=== PATIENT | male | born 1955 | race Caucasian/White ===

== ENCOUNTER 2017-11-30 06:00 | Inpatient (IN) ==
[2017-11-30] MEDS ORDERED: Heparin 10,000 UNITS/10 ML Vial (for IV use) ONE (06:43)
[2017-11-30] MEDS ORDERED: Protamine Sulfate Inj 50 MG/5 ML Vial ONE (06:43)
[2017-11-30] MEDS ORDERED: Heparin/NS PF Inj 500 ML ONE (06:44)
[2017-11-30] MEDS ORDERED: Thrombin Topical 20,000 UNIT Spray Kit TOPICAL ONE (06:44)
[2017-11-30] MEDS ORDERED: Bupivacaine 0.5% Inj 50 ML MDV Vial ONE (06:44)
[2017-11-30] MEDS ORDERED: Metoprolol Tartrate 25 MG Tablet PO ONE (07:01)
[2017-11-30] MEDS ORDERED: Chlorhexidine Gluconate 2% 1 Pack (2 Cloths) TOPICAL ONE (07:01)
--- NOTE | 2017-11-30 07:02 | P.PNVS ---
- Pre-operative Note Planned Procedure: R groin reconstruction, angiogram and endovascular intervention Interval History: Pt has been feeling well, no problems. Ready for procedure. Labs: Hct 40 [id number] cr 0.7 INR pending Blood: T&S EKG: no acute changes Imaging: will make in OR Orders: NPO Ancef 2g IV OCTOR Post-operative Destination: PACU Operative site marked: Yes Consent: Informed consent has been obtained from Teddy Carbone. I have explained the procedure in detail and discussed the risks, benefits, and potential complications. All questions have been answered. Patient Contact Information: , [place] [phone]
[2017-11-30] MEDS ORDERED: Lidocaine PF 1% Inj 5 ML Syringe OTHER ONE (07:45)
[2017-11-30] MEDS ORDERED: Normosol-R pH 7.4 Inj 1,000 ML IV.CONT ONE (07:45)
[2017-11-30] MEDS ORDERED: Glycopyrrolate Inj 1 MG/5 ML Syringe IV.PUSH ONE (07:45)
[2017-11-30] MEDS ORDERED: Neostigmine Inj 5 MG/5 ML Syringe IV.PUSH ONE (07:45)
[2017-11-30] MEDS ORDERED: Sodium Chlor 0.9% Inj 500 ML IV.CONT ONE (07:45)
[2017-11-30] MEDS ORDERED: Sodium Chlor 0.9% Inj 500 ML IV.SIG SCH (08:00)
[2017-11-30] MEDS: ceFAZolin 2 GM Premix Inj 2 GM/50 ML PIGGYBACK IV.SIG ONE ×2 (08:25→08:35)
[2017-11-30] MEDS ORDERED: Morphine Inj 4 MG/ML Vial IV.PUSH PRN (11:42)
[2017-11-30] MEDS ORDERED: Bisacodyl 10 MG Supp RECTAL PRN (11:42)
--- NOTE | 2017-11-30 11:42 | P.OP ---
- Preoperative Diagnosis (1) Claudication of right lower extremity - Postoperative Diagnosis (1) Claudication of right lower extremity Date of procedure: 11/30/17 Procedure: 1. R ilioprofunda bypass (8mm Dacron) 2. R MENAGERIE CARETAKER-SFA bypass (8mm Dacron) 3. R LE angiogram 4. R SFA orbital atherectomy/stent (6x120 Zilver PTX) 5. L MENAGERIE CARETAKER Angioseal Implants: 1. Dacron R groin 2. R SFA stent 3. L MENAGERIE CARETAKER Angioseal Anesthesia: GETA Surgeon: Rosas Collazo MD Floor Framer: Mata John Floor Framer: TERESSA Montesinos Estimated blood loss (mL): 200 IV fluids (mL): 2,200 Urine output (mL): 400 Pathology: none sent Operation and Findings: severe calcific occlusive disease good pedal signals after revascularization
[2017-11-30] MEDS ORDERED: Dextrose 50% in Water 50 ML Vial IV.PUSH PRN (11:46)
[2017-11-30] MEDS ORDERED: Morphine Inj 4 MG/ML Vial ONE (12:35)
[2017-11-30] MEDS ORDERED: fentaNYL Citrate Inj 100 MCG/2 ML Ampul ONE (12:35)
--- NOTE | 2017-11-30 13:39 | MP ---
cc: Rosas Collazo MD DATE OF OPERATION: 11/30/2017 PREOPERATIVE DIAGNOSES: Right lower extremity claudication, peripheral vascular disease. POSTOPERATIVE DIAGNOSES: Right lower extremity claudication, peripheral vascular disease. PROCEDURE PERFORMED: 1. Aortogram with right lower extremity angiogram. 2. Right ilioprofunda bypass with 8 mm Dacron. 3. Right common femoral artery to superficial femoral artery bypass with 8 mm Dacron. 4. Right superficial femoral artery orbital atherectomy, angioplasty and stent with a 6 x 120 drug-coated stent. 5. Left common femoral artery Angio-Seal. ATTENDING SURGEON: Rosas Collazo MD WAREHOUSE OPERATIONS MANAGER SURGEONS: Mata John MD; TERESSA Negron, PA/Risk Control Consultant ANESTHESIA: General. INDICATIONS: Mr. Carbone is a 62-year-old gentleman with right lower extremity claudication and ABIs in the 0.5 range. He was taken to the operating room for hybrid therapy. There is no prior catheter-based imaging available for my review of the right leg in its entirety. DESCRIPTION OF PROCEDURE: Informed consent was obtained from the patient. He was taken to the operating room and placed supine on the operating room table. An appropriate timeout was taken to ensure the patient's identity, operative site and planned procedure. The administration of 2 grams of Ancef was initiated prior to skin incision and will be discontinued after a single preoperative dose. Everyone in the room agreed with the timeout and we proceeded. He was prepped from his nipples to his toes. A 21 gauge micropuncture needle was used to access the left common femoral artery. This was exchanged using the Seldinger technique for a micropuncture sheath, through which a 0.035 Glidewire was introduced and the micropuncture sheath was exchanged for a 5 Singaporean sheath. A VCF catheter was positioned over the wire and through the sheath, an aortogram and pelvic arteriogram obtained. The aortogram showed the patient had patent infrarenal aorta, common iliac arteries, external iliac arteries and hypogastrics bilaterally without any hemodynamically significant stenosis. The wire and catheter were navigated down to the right external iliac artery and a right lower extremity angiogram was obtained. This showed the patient had an occluded common femoral artery with reconstitution of the profunda. The proximal SFA was also occluded. The distal SFA had severe high-grade stenoses and there was 3-vessel runoff below the knee. The wire and catheter were removed. The sheath was flushed. A vertical incision was made in the patient's right groin and carried down to the subcutaneous tissue. The inguinal ligament was divided. The iliac arteries, circumflex arteries, common femoral, profunda and SFA were all dissected free. The patient was systemically heparinized and throughout the remainder of the case, the ACT was kept greater than 250. Proximal control of the external iliac arteries were obtained with profunda clamps and large Hemoclips were temporarily placed on the circumflex vessels. The SFA and both branches of the profunda were controlled with profunda clamps. The entire artery was resected and the iliac artery was endarterectomized and spatulated. An 8 mm Dacron was brought up on the field and sewn end to end to the external iliac artery with running 5-0 Prolene suture. At completion, it was flushed and noted to be hemostatic. The clamps were released and the Anderson softjaw was placed on the Dacron. The Dacron was cut to appropriate length, spatulated and sewn to the profunda at the bifurcation after the profunda had been spatulated. This was done with running 6-0 Prolene suture. At completion, it was flushed and noted to be hemostatic. The clamps were released and there were Doppler signals in both profunda branches. Clamps were then placed on the Dacron and a longitudinal graftotomy was made with an 11 blade and extended with Jose scissors. The Dacron was then spatulated and sewn end to side with running 5-0 Prolene suture. The distal SFA was endarterectomized and spatulated and the Dacron was cut to appropriate length and spatulated and sewn end to end to the SFA with running 5-0 Prolene suture. At the completion, it was flushed and noted to be hemostatic. All the anastomoses were hemostatic. We then turned our attention towards the endovascular part of the procedure. A Glidewire and VCF catheter were advanced up to the right common femoral artery and advanced down through our graft into the mid SFA. A Cortes was placed in exchange for the [place]. The VCF catheter and 5 Singaporean sheath were removed and a 6 Singaporean 55 cm antral sheath was introduced. A CXI catheter was placed over the Cortes and the Cortes was exchanged for a BRINE PROCESS OPERATOR wire. Using the BRINE PROCESS OPERATOR and CXI, we were unable to traverse the distal SFA calcific stenosis, but were able to reach this in the subintimal plane and then reenter the true lumen and this confirmed angiographically. Once the BRINE PROCESS OPERATOR was past the occlusion and into the distal SFA, a Viper wire was then placed and the CXI catheter was removed. The distal SFA was atherectomized using an orbital atherectomy system. It was post atherectomy angioplastied with a 5 mm balloon. The completion angiogram showed residual stenosis and this was treated with a 6 x 120 drug-coated stent. The completion angiogram showed excellent result without any recoil extravasation and no embolic complications. The wire, catheter and sheath were removed and the groin was closed with an Angio-Seal. There were Doppler signals in the right foot. The heparin was reversed with protamine. The wound was irrigated, infiltrated with Marcaine, made hemostatic and closed with 2-0 Polysorb in 2 layers, 3-0 Polysorb and 4-0 Monocryl. The sponge and needle counts were correct at the end of the case. I was present, scrubbed and performed the entire procedure. MD JAVI Hernandez/chris , 12:45 PM , 12:58 PM
[2017-11-30] MEDS: Insulin NovoLOG Aspart Correctional Sugar Inj SQ SCH ×2 (17:29→23:17)
[2017-12-01] MEDS: Senna/Docusate Sodium 8.6/50 MG Tablet PO SCH ×3 (00:19→20:53)
[2017-12-01 05:45] LABS: Hematocrit 38.7 % (39.0-51.0); Hemoglobin 13.1 gm/dL (13.0-17.0); Mean Corpuscular HGB Conc 33.8 % (32.0-36.0); Mean Corpuscular Hemoglobin 32.3 pg (27.0-34.0); Mean Corpuscular Volume 95.3 fL (80.0-100.0); Mean Platelet Volume 7.7 fL (7.0-11.0); Platelet Count 165 th/mm3 (150-450); Red Blood Count 4.06 mil/mm3 (4.50-5.90); Red Cell Distribution Width 13.1 % (11.6-17.2); White Blood Count 7.8 th/mm3 (4.0-11.0)
[2017-12-01 06:04] LABS: Anion Gap 9 meq/L (5-15); Blood Urea Nitrogen 8 mg/dL (7-18); Calcium 8.3 mg/dL (8.5-10.1); Carbon Dioxide 29.2 meq/L (21.0-32.0); Chloride 100 meq/L (98-107); Glomerular Filtration Rate Greater Than 89 mL/min (>89); Glucose,Random 224 mg/dL (74-106); Potassium 3.9 meq/L (3.5-5.1); Sodium 138 meq/L (136-145)
--- NOTE | 2017-12-01 09:17 | P.PNVS ---
Subjective Post Op Day #: 1 Procedure: R groin reconstruction and SFA intervention Subjective/Hospital Course: looks good pain controlled modestly foot feels warmer Objective Vital Signs / I&O: Vital Signs 11/30/17 12:17 11/30/17 12:30 11/30/17 12:45 Temperature 97.4 F L Pulse Rate 72 66 63 Respiratory Rate 15 14 12 Blood Pressure 159/81 H 154/78 H 155/79 H Pulse Oximetry 98 92 L 95 11/30/17 13:00 11/30/17 13:15 11/30/17 13:30 Temperature Pulse Rate 61 60 61 Respiratory Rate 12 13 14 Blood Pressure 151/77 H 148/76 H 148/80 H Pulse Oximetry 96 97 94 L 11/30/17 13:45 11/30/17 14:00 11/30/17 14:15 Temperature Pulse Rate 60 62 63 Respiratory Rate 14 13 12 Blood Pressure 147/74 H 147/77 H 150/77 H Pulse Oximetry 95 95 96 11/30/17 14:30 11/30/17 16:00 11/30/17 20:00 Temperature 97.5 F L 98.7 F 97.9 F Pulse Rate 66 63 78 Respiratory Rate 15 17 22 Blood Pressure 150/77 H 153/79 H Pulse Oximetry 95 97 100 12/01/17 00:00 12/01/17 00:40 12/01/17 04:00 Temperature 97.9 F 98.2 F Pulse Rate 74 77 Respiratory Rate 20 18 18 Blood Pressure 148/75 H 153/74 H Pulse Oximetry 100 100 12/01/17 08:00 Temperature Pulse Rate Respiratory Rate 18 Blood Pressure Pulse Oximetry Intake & Output 11/30/17 12/01/17 12/01/17 18:59 06:59 18:59 Intake Total 2490 / 2490 240 / 240 Output Total 1300 / 1300 900 / 900 Balance 1190 / 1190 -660 / -660 Weight 68.096 kg 69.5 kg Intake: IV 1050 / 1050 Heparin/NS PF Inj 500 ML @ 0 0 / 0 mls/hr .ROUTE .STK-MED ONE Rx#: [id number] LR 1000 mL Inj 1,000 ML @ 30 1000 / 1000 mls/hr IV.SIG .Q24H [facility] Rx#: [id number] Ancef 2 GM Premix Inj 2 gm In 50 / 50 50 ml @ 0 mls/hr IV.SIG .STK- MED ONE Rx#:[id number] Oral 240 / 240 240 / 240 Anesthesia Amount 1200 / 1200 Output: Estimated Blood Loss 200 / 200 Urine Amount (Catheter) 1100 / 1100 900 / 900 3-way Urethral 650 / 650 Indwelling Urethral Catheter 450 / 450 900 / 900 Other: Mode Setting Right Groin Continuous Continuous Date of Last Bowel Movement 11/29/17 11/29/17 Exam: R groin soft, Prevena intact palpable DP Laboratory Results - last 24 hr 11/30/17 11/30/17 11/30/17 13:02 17:24 23:33 WBC RBC Hgb Hct MCV MCH MCHC RDW Plt Count MPV Sodium Potassium Chloride Carbon Dioxide Anion Gap BUN Creatinine Estimated GFR POC Glucose 204 H 187 H 259 H Random Glucose Calcium 12/01/17 12/01/17 12/01/17 04:13 04:13 05:01 WBC 7.8 RBC 4.06 L Hgb 13.1 Hct 38.7 L MCV 95.3 MCH 32.3 MCHC 33.8 RDW 13.1 Plt Count 165 MPV 7.7 Sodium 138 Potassium 3.9 Chloride 100 Carbon Dioxide 29.2 Anion Gap 9 BUN 8 Creatinine 0.68 Estimated GFR Greater than 89 POC Glucose 228 H Random Glucose 224 H Calcium 8.3 L Assessment and Plan - Assessment (1) Claudication of right lower extremity Code(s): I73.9 - Peripheral vascular disease, unspecified Status: Acute - Plan POD#1 s/p R groin reconstruction; looks good 1. IV pain meds for pain control 2. Maciel out - watch for UOP (difficult placement intraop) 3. Resume anticoagulation tomorrow (POD#2) 4. Continue ASA/plavix 5. OOB/PT Discharge Planning: likely 2 days
[2017-12-01] MEDS: glipiZIDE 5 MG Tablet PO SCH (09:20)
[2017-12-01] MEDS: dilTIAZem CD 180 MG Capsule PO SCH (09:21)
[2017-12-01] MEDS: Insulin NovoLOG Aspart Correctional Sugar Inj SQ SCH ×5 (09:22→20:53)
[2017-12-01] MEDS ORDERED: Enoxaparin Inj 40 MG/0.4 ML Syringe SQ SCH (11:00)
[2017-12-02] MEDS: Insulin NovoLOG Aspart Correctional Sugar Inj SQ SCH ×5 (04:42→20:48)
[2017-12-02] MEDS: glipiZIDE 5 MG Tablet PO SCH (09:10)
[2017-12-02] MEDS: Senna/Docusate Sodium 8.6/50 MG Tablet PO SCH ×2 (09:11→20:48)
[2017-12-02] MEDS: dilTIAZem CD 180 MG Capsule PO SCH (09:11)
--- NOTE | 2017-12-02 09:22 | P.PNVS ---
Subjective Post Op Day #: 2 Procedure: R groin reconstruction and SFA intervention Subjective/Hospital Course: more mobile today foot continues to be warm, perfused Objective Vital Signs / I&O: Vital Signs 12/01/17 12:00 12/01/17 14:26 12/01/17 16:00 Temperature 98 F 98 F Pulse Rate 76 92 H Respiratory Rate 20 Blood Pressure 150/68 H Pulse Oximetry 100 12/01/17 19:00 12/01/17 20:00 12/01/17 21:00 Temperature 98.8 F Pulse Rate 97 H 90 92 H Respiratory Rate 14 Blood Pressure 136/71 Pulse Oximetry 93 L 12/01/17 22:00 12/01/17 23:00 12/02/17 00:00 Temperature 99.9 F H Pulse Rate 90 90 92 H Respiratory Rate 14 Blood Pressure 139/71 Pulse Oximetry 92 L 12/02/17 00:03 12/02/17 01:57 12/02/17 02:00 Temperature Pulse Rate 91 H 82 83 Respiratory Rate Blood Pressure Pulse Oximetry 12/02/17 03:00 12/02/17 04:00 12/02/17 05:00 Temperature 99.1 F Pulse Rate 81 80 96 H Respiratory Rate 14 Blood Pressure 135/65 Pulse Oximetry 93 L 12/02/17 06:00 Temperature Pulse Rate 79 Respiratory Rate Blood Pressure Pulse Oximetry Intake & Output 12/01/17 12/02/17 12/02/17 18:59 06:59 18:59 Intake Total 1440 / 1440 240 / 240 Output Total 1100 / 1100 200 / 200 Balance 340 / 340 40 / 40 Weight 68.5 kg Intake: Oral 240 / 240 240 / 240 Anesthesia Amount 1200 / 1200 Output: Urine 200 / 200 Estimated Blood Loss 200 / 200 Urine Amount (Catheter) 900 / 900 Indwelling Urethral Catheter 900 / 900 Other: Post Void Residual 600 Mode Setting Right Groin Continuous Continuous # Voids 1 1 Date of Last Bowel Movement 11/29/17 11/29/17 # Bowel Movements 1 Exam: R Prevena in place, no groin swelling palpable DP Laboratory Results - last 24 hr 12/01/17 12/01/17 12/02/17 17:45 20:11 04:16 POC Glucose 184 H 236 H 170 H 12/02/17 08:00 POC Glucose 180 H Assessment and Plan - Assessment (1) Claudication of right lower extremity Code(s): I73.9 - Peripheral vascular disease, unspecified Status: Acute - Plan POD#2 s/p R groin reconstruction; looks good 1. resume anticoagulation (home) 2. OOB/PT 3. D/C tomorrow Discharge Planning: home
[2017-12-02] MEDS: Enoxaparin Inj 60 MG/0.6 ML Syringe SQ SCH ×2 (09:56→20:48)
[2017-12-02 12:35] LABS: INR 1.1 Ratio; Prothrombin Time 11.1 sec (9.8-11.6)
[2017-12-03] MEDS: Insulin NovoLOG Aspart Correctional Sugar Inj SQ SCH ×2 (02:03→09:01)
[2017-12-03 07:04] VITALS: RESP 18
--- NOTE | 2017-12-03 07:40 | P.PNVS ---
Subjective Post Op Day #: 3 Procedure: R groin reconstruction and SFA intervention Subjective/Hospital Course: looks great pain controlled OOB TC and ambulating ame po voiding Objective Vital Signs / I&O: Vital Signs 12/02/17 08:00 12/02/17 09:00 12/02/17 10:00 Temperature 98.2 F Pulse Rate 82 87 77 Respiratory Rate 18 Blood Pressure 144/72 H Pulse Oximetry 92 L 12/02/17 10:41 12/02/17 11:00 12/02/17 12:00 Temperature 99.1 F Pulse Rate 77 80 Respiratory Rate 18 18 Blood Pressure 148/72 H Pulse Oximetry 96 12/02/17 13:00 12/02/17 14:00 12/02/17 15:00 Temperature Pulse Rate 76 72 78 Respiratory Rate Blood Pressure Pulse Oximetry 12/02/17 16:00 12/02/17 17:00 12/02/17 18:00 Temperature 98.5 F Pulse Rate 77 87 77 Respiratory Rate 18 Blood Pressure 143/67 H Pulse Oximetry 96 12/02/17 18:27 12/02/17 19:00 12/02/17 20:00 Temperature 99.6 F Pulse Rate 75 80 Respiratory Rate 18 16 Blood Pressure 144/69 H Pulse Oximetry 93 L 12/02/17 21:00 12/02/17 22:00 12/02/17 23:00 Temperature Pulse Rate 82 80 75 Respiratory Rate Blood Pressure Pulse Oximetry 12/03/17 00:00 12/03/17 01:00 12/03/17 02:00 Temperature 99.5 F Pulse Rate 80 82 82 Respiratory Rate 16 Blood Pressure 148/68 H Pulse Oximetry 95 12/03/17 03:00 12/03/17 03:23 12/03/17 04:00 Temperature 98.5 F 98.5 F Pulse Rate 82 84 80 Respiratory Rate 16 16 Blood Pressure 151/74 H 151/74 H Pulse Oximetry 95 95 12/03/17 05:00 12/03/17 06:00 12/03/17 07:04 Temperature Pulse Rate 84 88 Respiratory Rate 18 Blood Pressure Pulse Oximetry Intake & Output 12/02/17 12/03/17 12/03/17 18:59 06:59 18:59 Intake Total 500 / 500 300 / 300 Balance 500 / 500 300 / 300 Weight 68.5 kg Intake: Oral 500 / 500 300 / 300 Other: Mode Setting Right Groin Continuous # Voids 3 2 Date of Last Bowel Movement 11/29/17 12/03/17 # Bowel Movements 1 Exam: R groin Prevena in place, groin soft palpable DP Laboratory Results - last 24 hr 12/02/17 12/02/17 12/02/17 08:00 11:23 11:57 PT 11.1 D INR 1.1 POC Glucose 180 H 181 H 12/02/17 12/02/17 12/03/17 15:48 19:34 02:02 PT INR POC Glucose 226 H 214 H 215 H Assessment and Plan - Assessment (1) Claudication of right lower extremity Code(s): I73.9 - Peripheral vascular disease, unspecified Status: Acute - Plan POD#3 s/p R groin reconstruction; looks good 1. d/c today 2. Going home on regular dose of coumadin, ASA (81) and 30 days of plavix 3. f/u Thursday for Prevena removal Discharge Planning: today
[2017-12-03] MEDS: Enoxaparin Inj 60 MG/0.6 ML Syringe SQ SCH (09:01)
[2017-12-03] MEDS: glipiZIDE 5 MG Tablet PO SCH (09:01)
[2017-12-03] MEDS: dilTIAZem CD 180 MG Capsule PO SCH (09:02)
[2017-12-03] MEDS: Senna/Docusate Sodium 8.6/50 MG Tablet PO SCH (09:04)
[2017-12-03 09:19] VITALS: PULSE 85
--- NOTE | 2017-12-03 09:21 | P.DS ---
Discharge Summary - Admission Date 11/30/17 06:00 - Admission Diagnosis (1) Claudication of right lower extremity - Discharge Date 12/03/17 - Discharge Diagnosis (1) Claudication of right lower extremity Status: Acute - Summary Brief History from admission: 62/M w a hx of R LE claudication Procedure: R groin reconstruction and SFA intervention Significant Findings: Palpable R DP LE warm w/ motor intact Pt denied claudication Prevena wound vac intact R groin s/nt w/o hematoma or swelling pain controlled Abnormal Lab Results 12/02/17 12/02/17 12/02/17 11:23 11:57 15:48 PT 11.1 D INR 1.1 POC Glucose 181 H 226 H 12/02/17 12/03/17 12/03/17 19:34 02:02 07:43 PT INR POC Glucose 214 H 215 H 167 H Hospital Course: 62/M with a PMH of arterial occlusive disease w/ worsening R LE claudication Pt s/p R groin reconstruction POD 1 looks good pain controlled modestly foot feels warmer POD 2 more mobile today foot continues to be warm, perfused POD 3 looks great pain controlled OOB TC and ambulating ame po voiding Pt clear for d/c w/ r groin wound vac Will remove in our out pt clinic on 12/07/17 Discussed out pt care and management - Discharge Instructions Any questions or concerns: Call [facility] at [facility] [phone] Discharge Plan - Discharge Disposition Patient Disposition: 01 Discharge Home - Discharge Condition Condition: Good - Discharge Order Discharge Orders: Discharge Order (Routine); Ordered 12/03/17 Ordered By: Sirisha Cristobal - Physicians Team Attending Provider: Rosas Collazo Rxs /Orders / Referrals /Forms Prescriptions: New clopidogrel [Plavix] 75 mg Tablet 75 mg PO DAILY 30 Days Qty: 30 RF: 0 oxycodone 5 mg Tablet 5 mg PO Q4H PRN (Reason: pain) Qty: 20 RF: 0 Continue aspirin 81 mg Tablet,Delayed Release (Dr/Ec) 81 mg PO DAILY diltiazem HCl [Cardizem LA] 360 mg Tablet Extended Release 24 Hr 360 mg PO DAILY glipizide 2.5 mg Tablet Extended Release 24hr 2.5 mg PO DAILY metformin 1,000 mg Tablet,Er Nixon.Retention 24 Hr 1,000 mg PO QPM rosuvastatin 20 mg Tablet 20 mg PO DAILY warfarin 6 mg Tablet 6 mg PO DAILY Ambulatory Orders / Order Sets / DME: Walker With Front Wheels (1 each) (Routine) Location: Determined by Patient Ordered By: Sirisha Cristobal Referrals: Kyle William MD [Other] - See Instructions Rosas Collazo MD [Physician] - See Instructions (Arrive Thursday in our out pt clinic on 12/07/17 at 1000 for your wound vac removal ) - Post Discharge Care Plan Care Plan Goals: Discharge Care Plan Goals After Vascular Surgery Contact: Please call [phone] if you have any problems or have questions regarding your hospitalization. Directions to Meet Your Goals: 1. Diet: * You may resume a regular diet as you were eating at home before your admission. 2. Activity: * Increase your activity level gradually. * Keep surgical extremities elevated when at rest. This will help limit the swelling, bruising and discomfort normally present after surgery. * Walking is a good form of light exercise. Go for a walk at least 3 times per day. * No heavy lifting (lifting over 10 pounds) for at least 4 weeks from surgery. * Check with your surgeon to ensure when you are cleared for heavy lifting and full-intensity exercising. * Your strength will gradually improve. * No driving or operating motorized vehicles while on prescription pain medications. * No swimming until wounds fully healed. * Return to work when cleared by MD/PA/SURFACER OPERATOR. 3. Bathing: Shower daily. * Gently let soap and water run over your incision and pat dry. Do not scrub the incision/wound. * Don't soak in a bath or submerge your incision in water until your incision is healed and evaluated by your physician at follow-up (usually two weeks). 4. Wound Care: INCISION SITE CARE INSTRUCTIONS: * You may leave your incision open to air. * Keep your incision clean and dry, unless showering. See above. * Moisture near the incision will cause the wound to open. * No lotions, creams, ointments, or powders on incisions until they are well- healed. * If you have glue over the incision(s), allow it to fall off naturally in 1-3 weeks * If present, aline/sutures will be removed 2-3 weeks after surgery during your follow-up clinic visit. * If present, change dressing/bandage when soaked/soiled as needed. * Observe wound daily, checking for signs and symptoms of infection including: foul odor, drainage from the incision, increased redness, increased pain at incision, or increased swelling. 5. Pain Control: Expect post-operative pain for 1-4 weeks after surgery. Your pain will improve gradually. * You may have been provided with a prescription for pain medication. Please take as directed, and be aware of side effects such as drowsiness, constipation and mild stomach discomfort. Pain pills on an empty stomach can cause nausea , so eat a small amount of food, such as crackers, when taking these pills. * Take [id number] stool softeners (Colace or Senna) with your prescribed pain medication. * Acetaminophen (500mg every 6 hours) or Ibuprofen (400mg every 6 hours) may be used in conjunction with narcotics to relieve pain. DO NOT take more than 4 grams (4000mg) of Tylenol in one day, as this can harm your liver. DO NOT take ibuprofen IF: you have an allergy to non-steroidal anti-inflammatory medications, you are taking Coumadin, you have been told you have kidney problems, or you have a history of gastrointestinal bleeding or ulcers. DO NOT take more than 3.2 grams (3200mg) of ibuprofen in one day. * You may also find relief from using heat packs or pads or ice packs. 6. Bowel Regimen for Constipation: * People who undergo surgery are likely to develop post-operative constipation. Exposure to narcotics and changes in diet, fluid intake, and physical activity are known contributors to constipation. We recommend routine stool softeners and/ or laxatives after surgery for most patients. Start by taking one medication. You can increase as directed to relieve constipation. Stop taking these medications if you develop diarrhea. These medications are available over-the- counter and do not require a prescription: * Colace is a stool softener. We recommend starting at 100mg orally twice per day as needed for soft stools and increase to a maximum of 200mg twice daily as needed. * Senna is a laxative that works by keeping water in the intestine to help stool move along the intestinal tract. Take 1 tablet daily as needed for soft stool and increase to a maximum of 2 tablets twice daily as needed. Take Senna with two full glasses of water each time. * Miralax, Dulcolax and Milk of Magnesia are other [id number] laxatives that may be used as needed for post-operative constipation. * Drink 6-8 glasses of water per day. * Consume 15-30g of fiber per day: * Metamucil powder, 1-2 tablespoons 1-2 times/day OR Benefiber powder, 2 tablespoons 4 times/day. * Avoid straining. 7. Follow-Up: Do Not miss your follow-up appointment. Keep up with all your appointments and yearly check ups If you have any of the following symptoms please call [phone] immediately: Excessive swelling of the affected extremity Sudden onset of severe or unusual pain in the affected extremity Pain that gets worse or is not relieved by medication Warmth, redness, or swelling in the skin around the wound Foul drainage from incision Extensive bruising or discoloration Wound that opens up or pulls apart Fever above 101.5F or shaking chills Nausea or vomiting Severe diarrhea or severe constipation Dizziness or fainting Chest pain, shortness of breath, or increased work of breathing Weight gain >10 lbs over 3-4 days Inability to urinate for more than 6 hours Cloudy or foul smelling urine Urge to urinate more often than usual Symptoms to Report to Your Doctor: Temperature 101F or higher Pain uncontrolled by medication Drainage or foul odor from incision Extensive bruising or discoloration Chest pain Shortness of breath Nausea, vomiting or dizziness Call 911: Call 911 right away if you have: Sudden onset of chest pain that is not relieved by medications Shortness of breath
[2017-12-03 09:24] VITALS: BP 159/77; TEMP 98.1; O2SAT 96
== END 2017-12-03 10:31 | disposition home or self-care (01) ==
LOC: HSDI 06:00 → HCPC 14:35
PROVIDERS: ADMIT Surgery; ATTEND Surgery